=== PATIENT | female | born 1950 | race Caucasian/White ===

== ENCOUNTER 2021-06-18 17:26 | Emergency (ER) | payer BC, MEDICARE ==
[~2021-06-18] VITALS: Ht 177.8 cm; Wt 102.3 kg
[2021-06-18 17:29] VITALS: TEMP 98.7
[2021-06-18] MEDS ORDERED: FIBER GUMMIES2.5 GM PO (17:39)
[2021-06-18] MEDS ORDERED: PROBIOTIC DIGE1 EACH PO (17:39)
[2021-06-18] MEDS ORDERED: NORCO 325 MG-51 TAB PO (18:30)
[2021-06-18] MEDS ORDERED: WALKER MC (18:30)
[2021-06-18 19:10] VITALS: BP 189/86; PULSE 82
== END 2021-06-18 19:15 | disposition home or self-care (01) ==
LOC: COL.ER 17:26
DX: S82.032A Displaced transverse fracture of left patella, initial encounter for closed fracture (principal); W11.XXXA Fall on and from ladder, initial encounter
CPT/HCPCS: L1830; L1846